=== PATIENT | female | born 1935 | race Caucasian/White ===

== ENCOUNTER 2018-03-23 06:40 | Day surgery (SDC) | payer MEDICARE, BC ==
[2018-03-23] MEDS ORDERED: Phenylephrine 10% Ophth Soln 5 ML Bot EYELF ONE (07:00)
[2018-03-23] MEDS ORDERED: Phenylephrine 10% Ophth Soln 5 ML Bot EYELF PRN (07:00)
[2018-03-23] MEDS ORDERED: Proparacaine 0.5% Ophth Soln 15 ML Bottle EYELF ONE (07:00)
[2018-03-23] MEDS ORDERED: Sodium Chloride 0.9% 10 ML Syringe FLUSH PRN (07:00)
[2018-03-23] MEDS ORDERED: Timolol Maleate 0.5% Ophth Soln 5 ML Bottle EYELF ONE (07:00)
[2018-03-23] MEDS ORDERED: Moxifloxacin 0.5% Ophth Soln 3 ML Bottle EYELF ONE (07:00)
[2018-03-23] MEDS ORDERED: Ondansetron 4 MG/2 ML SDV IVPUSH PRN (07:00)
[2018-03-23] MEDS ORDERED: Acetaminophen 325 MG Tab PO PRN (07:00)
[2018-03-23] MEDS ORDERED: Povidone-Iodine 5% Sterile Ophth Soln 30 ML Bottle EYELF ONE (07:00)
[2018-03-23] MEDS ORDERED: Cataract Ophth Solution EYELF ONE (07:40)
== END 2018-03-23 08:58 | disposition home or self-care (01) ==
LOC: DL.SDS 06:40
PROVIDERS: ATTEND Ophthalmology
DX: E11.36 Type 2 diabetes mellitus with diabetic cataract (principal); Z53.8 Procedure and treatment not carried out for other reasons; I10 Essential (primary) hypertension; E78.5 Hyperlipidemia, unspecified; E03.9 Hypothyroidism, unspecified; Z87.891 Personal history of nicotine dependence; Z79.82 Long term (current) use of aspirin; Z79.899 Other long term (current) drug therapy; Z88.1 Allergy status to other antibiotic agents
CPT/HCPCS: J7050

== ENCOUNTER 2019-01-13 10:10 | Inpatient (IN) | payer MEDICARE, BC ==
--- NOTE | 2019-01-13 10:26 | EDM.PDOC ---
ED HPI GENERAL MEDICAL PROBLEM - General Chief Complaint: Gastrointestinal Problem Stated Complaint: UNKNOWN Time Seen by Provider: 01/13/19 10:20 Source of Information: Reports: Patient History Limitations: Reports: No Limitations - History of Present Illness INITIAL COMMENTS - FREE TEXT/NARRATIVE: patient comes emergency Department today from home by ambulance with concerns of dizziness. She got home from the hospital on Wednesday following a left knee replacement in [place]. Which went uneventful. Since yesterday she has been somewhat nauseated. She also noticed yesterday that she was having dizziness even when she was laying still. Today she had increased room spinning and dizziness not only when she was lying still but with ambulation she became nauseated and vomited. 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 She has not had any fever or chills. No headache. No recent falls or head injury. No visual disturbances. No weakness dizziness lightheadedness. No fever no chills. No chest pain or shortness of breath or difficulty breathing. No abdominal pain but does have some abdominal distention. He has not had a bowel movement since Wednesday which is 5 days ago and she has been taking oxycodone and tramadol for pain. - Related Data Allergies Allergy/AdvReac Type Severity Reaction Status Date / Time adhesive tape Allergy Intermediate Other Verified 01/13/19 10:27 sulfamethoxazole Allergy Intermediate Nausea Verified 01/13/19 10:27 [From Bactrim] ciprofloxacin Allergy Nausea Verified 01/13/19 10:27 nitrofurantoin Allergy Nausea Verified 01/13/19 10:27 trimethoprim [From Bactrim] Allergy Nausea Verified 01/13/19 10:27 Home Meds: Home Meds Aspirin [Halfprin] 81 mg PO BID 01/13/19 [History] Calcium Carbonate/Vitamin D3 [Calcium 600 + Vit D 400 Softgl] 1 cap PO DAILY 02/24 [History] Cranberry Extract/Vit C [Azo Cranberry Softgel] 1 tab PO DAILY 01/13/19 [History ] Cyanocobalamin (Vitamin B-12) [B-12] 1,000 mcg PO DAILY 01/13/19 [History] Levothyroxine 75 mcg PO ACBREAKFAST 01/13/19 [History] Magnesium Oxide [Magnesium] 400 mg PO DAILY 01/13/19 [History] Multivitamin [Multivitamins] 1 each PO DAILY 01/13/19 [History] Simvastatin 20 mg PO BEDTIME 01/13/19 [History] Triamcinolone Acetonide [Kenalog 0.1% Crm] 15 gm TOP BID 01/13/19 [History] oxyCODONE 5 mg PO Q4H PRN 01/13/19 [History] traMADol [Ultram] 25 mg PO Q6H PRN 01/13/19 [History] Past Medical History HEENT History: Reports: Cataract Cardiovascular History: Reports: High Cholesterol, Hypertension, Pacemaker Respiratory History: Reports: None Gastrointestinal History: Reports: GERD Genitourinary History: Reports: None 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: Musculoskeletal History: Reports: Back Pain, Chronic Neurological History: Reports: None Psychiatric History: Reports: None Endocrine/Metabolic History: Reports: Hypothyroidism Hematologic History: Reports: None Immunologic History: Reports: None Oncologic (Cancer) History: Reports: None Dermatologic History: Reports: None - Infectious Disease History Infectious Disease History: Reports: Chicken Pox, Measles, Mumps - Past Surgical History Head Surgeries/Procedures: Reports: None HEENT Surgical History: Reports: None, Cataract Surgery Cardiovascular Surgical History: Reports: Pacer GI Surgical History: Reports: Appendectomy, Cholecystectomy, Colonoscopy Female Surgical History: Reports: Hysterectomy Endocrine Surgical History: Reports: None Musculoskeletal Surgical History: Reports: None Social & Family History - Family History Family Medical History: Noncontributory - Caffeine Use Caffeine Use: Reports: Coffee Caffeine Use Comment: cup coffee am. . cup of tea in pm ED ROS GENERAL - Review of Systems Review Of Systems: ROS reveals no pertinent complaints other than HPI. ED EXAM, DIZZINESS - Physical Exam Exam: See Below Exam Limited By: No Limitations General Appearance: Alert, WD/WN, No Apparent Distress Eye Exam: Bilateral Eye: EOMI, Nystagmus (lateral nystagmus no rotary nystagmus) , PERRL Nystagmus: reproducible Ears: Normal External Exam, Normal Canal, Normal TMs Nose: Normal Inspection, Normal Mucosa Throat/Mouth: Normal Inspection, Normal Lips, Normal Oropharynx Head Exam: Atraumatic, Normocephalic Neck: Normal Inspection, Supple, Non-Tender Respiratory/Chest: No Respiratory Distress, Lungs Clear, Normal Breath Sounds, No Accessory Muscle Use Cardiovascular: Normal Peripheral Pulses, Regular Rate, Rhythm GI/Abdominal: Soft, Non-Tender, Distended (mildly), Abnormal Bowel Sounds ( decreased) Neurological: Alert, Normal Mood/Affect, Normal Dorsiflexion, CN II-XII Intact, Normal Plantar Flexion, Normal Reflexes, No Motor/Sensory Deficits, Oriented x 3 Back Exam: Normal Inspection, Full Range of Motion Extremities: No: Normal Inspection (there is a well-healing unremarkable surgical incision over the left knee with normal postoperative changes. She has scant amount of pretibial edema on the left lower extremity none on the right lower extremity.) Psychiatric: Normal Affect, Normal Mood Skin Exam: Warm, Dry, Intact, No Rash, Pallor EKG INTERPRETATION EKG Date: 01/13/19 Time: 10:35 Rhythm: Other (atrial paced) Rate (Beats/Min): 62 [place]: Normal P-Wave: Present QRS: LBBB ST-T: Normal QT: Normal Comparison: NA - No Prior EKG Course - Vital Signs Last Recorded V/S: Last Vital Signs Temp 35.9 C 01/13/19 10:30 Pulse 62 01/13/19 10:30 Resp 16 01/13/19 10:30 BP 133/83 01/13/19 10:30 Pulse Ox 99 01/13/19 10:56 - Orders/Labs/Meds Orders: Active Orders 24 hr Category Date Time Status EKG 12 Lead [EKG Documentation Completion] [RC] URGENT Care 01/13/19 10:26 Active OSMOLALITY - SERUM [REF] Stat Lab 01/13/19 10:39 Received OSMOLALITY - URINE Stat Lab 01/13/19 12:40 Ordered UA RFX HARPAL AND CULT IF INDIC [URIN] Stat Lab 01/13/19 12:40 Ordered Sodium Chloride 0.9% [Normal Saline] 1,000 ml Med 01/13/19 11:24 Active IV .BOLUS Medication Orders Sodium Chloride (Normal Saline) 1,000 mls @ 125 mls/hr IV .BOLUS ONE Stop: 01/13/19 19:23 Last Admin: 01/13/19 12:14 Dose: 125 mls/hr Labs: Laboratory Tests 01/13/19 01/13/19 Range/Units 10:39 10:39 WBC 6.5 (5.0-10.0) 10^3/uL RBC 3.62 L (4.2-5.4) 10^6/uL Hgb 12.0 (12.0-16.0) g/dL Hct 35.1 L (37.0-47.0) % MCV 97.0 (80-100) fL MCH 33.1 (27.0-34.0) pg MCHC 34.2 (33.0-35.0) g/dL Plt Count 130 L (150-450) 10^3/uL Neut % (Auto) 76.7 H (42.2-75.2) % Lymph % (Auto) 12.6 L (20.5-50.1) % [place] % (Auto) 8.1 H (2-8) % Eos % (Auto) 2.3 (1.0-3.0) % Baso % (Auto) 0.3 (0.0-1.0) % Sodium 127 L (135-145) mmol/L Potassium 4.7 (3.6-5.0) mmol/L Chloride 92 L (101-111) mmol/L Carbon Dioxide 25.0 (21.0-31.0) mmol/L Anion Gap 14.7 BUN 14 (7-18) mg/dL Creatinine 0.6 (0.6-1.3) mg/dL Est Cr Clr Drug Dosing 63.93 mL/min Estimated GFR (MDRD) > 60 BUN/Creatinine Ratio 23.33 Glucose 128 H (74-105) mg/dL Calcium 8.6 (8.4-10.2) mg/dl Total Bilirubin 1.4 H (0.2-1.0) mg/dL AST 18 (10-42) IU/L ALT 11 (10-60) IU/L Alkaline Phosphatase 44 (42-121) IU/L Troponin I < 0.02 (0.00-0.02) ng/ml Total Protein 6.3 L (6.7-8.2) g/dl Albumin 3.4 (3.2-5.5) g/dl Globulin 2.9 Albumin/Globulin Ratio 1.17 Meds: Medications Generic Name Dose Route Start Last Admin Trade Name Freq PRN Reason Stop Dose Admin Sodium Chloride 1,000 mls @ 125 mls/hr 01/13/19 11:24 01/13/19 12:14 Normal Saline IV 01/13/19 19:23 125 mls/hr .BOLUS ONE Administration Discontinued Medications Generic Name Dose Route Start Last Admin Trade Name Freq PRN Reason Stop Dose Admin Meclizine HCl 12.5 mg 01/13/19 10:28 01/13/19 10:36 Antivert PO 01/13/19 10:29 12.5 mg ONETIME ONE Administration Polyethylene Glycol 34 gm 01/13/19 12:19 Miralax PO 01/13/19 12:20 ONETIME ONE - Re-Assessments/Exams Free Text/Narrative Re-Assessment/Exam: 01/13/19 11:00 Meclizine 12.5mg PO PT consult for Eply Pacer interrogation with no events per [employer] 01/13/19 11:24 Looking into her Lino One[employer] her Sodium on 01/09/19 was 140. 01/13/19 13:55 Unable to complete the Eply per PT. Miralax 34 grams po. Xray with gas bowel loops dialated no sign of obstruction with obstipation when reviewed extemporaneously by myself. Sodium quite low 127 which is quite lower than her Lino One. She does not feel like she can be at home with the dizzines and nausea. I spoke with Dr. Camargo HPI ER COURSE findings and concerns were relayed to him. He accepted the patient as inpatient here at [facility]. Pt is comfortable with the plan. Departure - Departure Time of Disposition: 13:01 Disposition: Admitted As Inpatient 66 Clinical Impression: Hyponatremia, Dizziness Constipation Qualifiers: Constipation type: unspecified constipation type Qualified Code(s): K59.00 - Constipation, unspecified - Discharge Information - My Orders Last 24 Hours: My Active Orders 01/13/19 10:26 EKG 12 Lead [EKG Documentation Completion] [RC] URGENT 01/13/19 10:39 OSMOLALITY - SERUM [REF] Stat 01/13/19 11:24 Sodium Chloride 0.9% [Normal Saline] 1,000 ml IV .BOLUS 01/13/19 12:40 OSMOLALITY - URINE Stat UA RFX HARPAL AND CULT IF INDIC [URIN] Stat - Assessment/Plan Last 24 Hours: My Active Orders 01/13/19 10:26 EKG 12 Lead [EKG Documentation Completion] [RC] URGENT 01/13/19 10:39 OSMOLALITY - SERUM [REF] Stat 01/13/19 11:24 Sodium Chloride 0.9% [Normal Saline] 1,000 ml IV .BOLUS 01/13/19 12:40 OSMOLALITY - URINE Stat UA RFX HARPAL AND CULT IF INDIC [URIN] Stat Assessment:: Hyponatremia Dizziness Constipation SP Left knee arthroscopy. Plan: Admit here Dr. Camargo inpatient.
[2019-01-13] MEDS ORDERED: Meclizine 12.5 MG Tab PO ONE (10:28)
[2019-01-13 11:11] LABS: ANION GAP 14.7; CHLORIDE,CL 92 mmol/L (101-111); SODIUM,NA 127 mmol/L (135-145)
[2019-01-13] MEDS ORDERED: Sodium Chloride 0.9% 1,000 ML IV ONE (11:24)
[2019-01-13] MEDS ORDERED: Polyethylene Glycol 3350 Powder 17 GM Packet PO ONE (12:19)
[2019-01-13] MEDS ORDERED: oxyCODONE 5 MG Tab PO PRN (16:27)
[2019-01-13] MEDS ORDERED: Magnesium Citrate Solution 296 ML Bottle PO ONE ×2 (16:29→19:45)
[2019-01-13] MEDS ORDERED: Bisacodyl 5 MG Tab PO SCH (16:30)
[2019-01-13] MEDS ORDERED: Polyethylene Glycol 3350 Powder 17 GM Packet PO SCH (16:30)
[2019-01-13] MEDS ORDERED: Sodium Chloride 0.9% 10 ML Syringe FLUSH PRN (16:30)
--- NOTE | 2019-01-13 16:40 | PCM.HP ---
H&P History of Present Illness - General Date of Service: 01/13/19 Admit Problem/Dx: Admission Diagnosis/Problem Admission Diagnosis/Problem Hyponatremia Source of Information: Patient History Limitations: Reports: No Limitations - History of Present Illness Initial Comments - Free Text/Narative: 83 yo F with PMH of HLD, HTN, osteoarthritis, recently had left knee surgery who was admitted with severe dizziness and constipation. Patient complains of sudden onset of dizziness that started this morning Was so severe that the patient found it difficult to lift her head up or stand up No fever, no chest pain, no abd pain Has been on oral pain meds after knee surgery and hasn't had a BM in several days - Related Data Allergies/Adverse Reactions: Allergies Allergy/AdvReac Type Severity Reaction Status Date / Time adhesive tape Allergy Intermediate Other Verified 01/13/19 14:05 sulfamethoxazole Allergy Intermediate Nausea Verified 01/13/19 14:05 [From Bactrim] ciprofloxacin Allergy Nausea Verified 01/13/19 14:05 nitrofurantoin Allergy Nausea Verified 01/13/19 14:05 trimethoprim [From Bactrim] Allergy Nausea Verified 01/13/19 14:05 Home Medications: Home Meds Aspirin [Halfprin] 81 mg PO BID 01/13/19 [History] Calcium Carbonate/Vitamin D3 [Calcium 600 + Vit D 400 Softgl] 1 cap PO DAILY 02/24 [History] Cranberry Extract/Vit C [Azo Cranberry Softgel] 1 tab PO DAILY 01/13/19 [History ] Cyanocobalamin (Vitamin B-12) [B-12] 1,000 mcg PO DAILY 01/13/19 [History] Levothyroxine 75 mcg PO ACBREAKFAST 01/13/19 [History] Magnesium Oxide [Magnesium] 400 mg PO DAILY 01/13/19 [History] Multivitamin [Multivitamins] 1 each PO DAILY 01/13/19 [History] Simvastatin 20 mg PO BEDTIME 01/13/19 [History] Triamcinolone Acetonide [Kenalog 0.1% Crm] 15 gm TOP BID 01/13/19 [History] oxyCODONE 5 mg PO Q4H PRN 01/13/19 [History] traMADol [Ultram] 25 mg PO Q6H PRN 01/13/19 [History] Past Medical History HEENT History: Reports: Cataract Cardiovascular History: Reports: High Cholesterol, Hypertension, Pacemaker Respiratory History: Reports: None Gastrointestinal History: Reports: GERD Genitourinary History: Reports: None 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: Musculoskeletal History: Reports: Back Pain, Chronic Neurological History: Reports: None Psychiatric History: Reports: None Endocrine/Metabolic History: Reports: Hypothyroidism Hematologic History: Reports: None Immunologic History: Reports: None Oncologic (Cancer) History: Reports: None Dermatologic History: Reports: None - Infectious Disease History Infectious Disease History: Reports: Chicken Pox, Measles, Mumps - Past Surgical History Head Surgeries/Procedures: Reports: None HEENT Surgical History: Reports: None, Cataract Surgery Cardiovascular Surgical History: Reports: Pacer GI Surgical History: Reports: Appendectomy, Cholecystectomy, Colonoscopy Female Surgical History: Reports: Hysterectomy Endocrine Surgical History: Reports: None Musculoskeletal Surgical History: Reports: None Social & Family History - Family History Family Medical History: Noncontributory - Tobacco Use Smoking Status *Q: Former Smoker Used Tobacco, but Quit: Yes Month/Year Tobacco Last Used: 01/1969 - Caffeine Use Caffeine Use: Reports: Coffee Caffeine Use Comment: cup coffee am. . cup of tea in pm - Recreational Drug Use Recreational Drug Use: No H&P Review of Systems - Review of Systems: Review Of Systems: ROS reveals no pertinent complaints other than HPI. General: Denies: Fever HEENT: Reports: No Symptoms Pulmonary: Reports: No Symptoms Cardiovascular: Reports: No Symptoms Gastrointestinal: Reports: No Symptoms Genitourinary: Reports: No Symptoms Psychiatric: Reports: No Symptoms Neurological: Reports: Dizziness Exam - Exam Exam: See Below - Vital Signs Vital Signs: Last Vital Signs Temp 36.2 C 01/13/19 13:53 Pulse 63 01/13/19 13:53 Resp 2 L 01/13/19 13:53 BP 184/72 H 01/13/19 13:53 Pulse Ox 99 01/13/19 13:53 Weight: 92.624 kg - Exam General: Alert, Oriented HEENT: Conjunctiva Clear Neck: Supple, Trachea Midline Lungs: Clear to Auscultation Cardiovascular: Regular Rate, Regular Rhythm GI/Abdominal Exam: Normal Bowel Sounds - Patient Data Lab Results Last 24 hrs: Laboratory Results - last 24 hr 01/13/19 01/13/19 01/13/19 Range/Units 10:39 10:39 12:40 WBC 6.5 (5.0-10.0) 10^3/uL RBC 3.62 L (4.2-5.4) 10^6/uL Hgb 12.0 (12.0-16.0) g/dL Hct 35.1 L (37.0-47.0) % MCV 97.0 (80-100) fL MCH 33.1 (27.0-34.0) pg MCHC 34.2 (33.0-35.0) g/dL Plt Count 130 L (150-450) 10^3/uL Neut % (Auto) 76.7 H (42.2-75.2) % Lymph % (Auto) 12.6 L (20.5-50.1) % [place] % (Auto) 8.1 H (2-8) % Eos % (Auto) 2.3 (1.0-3.0) % Baso % (Auto) 0.3 (0.0-1.0) % Sodium 127 L (135-145) mmol/L Potassium 4.7 (3.6-5.0) mmol/L Chloride 92 L (101-111) mmol/L Carbon Dioxide 25.0 (21.0-31.0) mmol/L Anion Gap 14.7 BUN 14 (7-18) mg/dL Creatinine 0.6 (0.6-1.3) mg/dL Est Cr Clr Drug Dosing 63.93 mL/min Estimated GFR (MDRD) > 60 BUN/Creatinine Ratio 23.33 Glucose 128 H (74-105) mg/dL Calcium 8.6 (8.4-10.2) mg/dl Total Bilirubin 1.4 H (0.2-1.0) mg/dL AST 18 (10-42) IU/L ALT 11 (10-60) IU/L Alkaline Phosphatase 44 (42-121) IU/L Troponin I < 0.02 (0.00-0.02) ng/ml Total Protein 6.3 L (6.7-8.2) g/dl Albumin 3.4 (3.2-5.5) g/dl Globulin 2.9 Albumin/Globulin Ratio 1.17 Urine Color Yellow (YELLOW) Urine Appearance Clear (CLEAR) Urine pH 7.0 (5.0-9.0) Ur Specific [place] 1.015 (1.005-1.030) Urine Protein Negative (NEGATIVE) Urine Glucose (UA) Negative (NEGATIVE) Urine Ketones Negative (NEGATIVE) Urine Occult Blood Negative (NEGATIVE) Urine Nitrite Negative (NEGATIVE) Urine Bilirubin Negative (NEGATIVE) Urine Urobilinogen 0.2 (0.2-1.0) mg/dL Ur Leukocyte Esterase Negative (NEGATIVE) Result Diagrams: 01/13/19 10:39 01/13/19 10:39 Problem List Initiated/Reviewed/Updated: Yes Orders Last 24hrs: Active Orders 24 hr Category Date Time Status Patient Status [ADT] Routine ADT 01/13/19 16:31 Active Ambulate [RC] ASDIRECTED Care 01/13/19 16:31 Active Height and Weight [RC] DAILY Care 01/13/19 16:31 Active Oxygen Therapy [RC] PRN Care 01/13/19 16:31 Active Peripheral IV Care [RC] . DIRECTED Care 01/13/19 16:31 Active Up With Assistance [RC] ASDIRECTED Care 01/13/19 16:31 Active VTE/DVT Education [RC] PER UNIT ROUTINE Care 01/13/19 16:31 Active Vital Signs [RC] Q4H Care 01/13/19 16:31 Active Regular Diet [DIET] Diet 01/13/19 Breakfast Active BASIC METABOLIC PANEL,BMP [CHEM] AM Lab 01/14/19 05:11 Ordered CBC W/O DIFF,HEMOGRAM [HEME] AM Lab 01/14/19 05:11 Ordered OSMOLALITY - SERUM [REF] Stat Lab 01/13/19 10:39 Received OSMOLALITY - URINE Stat Lab 01/13/19 12:40 Received SODIUM,NA [CHEM] Q6H Lab 01/13/19 18:00 Ordered SODIUM,NA [CHEM] Q6H Lab 01/14/19 00:00 Ordered SODIUM,NA [CHEM] Q6H Lab 01/14/19 06:00 Ordered SODIUM,NA [CHEM] Q6H Lab 01/14/19 12:00 Ordered SODIUM,NA [CHEM] Q6H Lab 01/14/19 18:00 Ordered SODIUM,NA [CHEM] Q6H Lab 01/15/19 00:00 Ordered SODIUM,NA [CHEM] Q6H Lab 01/15/19 06:00 Ordered SODIUM,URINE RANDOM [URCHEM] Routine Lab 01/13/19 16:26 Ordered Aspirin [Halfprin] Med 01/13/19 21:00 Ordered 81 mg PO BID Bisacodyl [Dulcolax] Med 01/13/19 16:30 Ordered 5 mg PO DAILY Calcium Carbonate/Vitamin D3 [Calcium 600 + Vit D 400 Med 01/14/19 09:00 Ordered Softgl] 1 cap PO DAILY Cyanocobalamin (Vitamin B12) [Vitamin B12] Med 01/14/19 09:00 Ordered 1,000 mcg PO DAILY Levothyroxine Med 01/14/19 06:00 Ordered 75 mcg PO ACBREAKFAST Magnesium Citrate [Citrate of Magnesia] Med 01/13/19 16:29 Once 296 ml PO ONETIME ONE Magnesium Oxide [Magnesium] Med 01/14/19 09:00 Ordered 400 mg PO DAILY Multivitamin [Multivitamins] Med 01/14/19 09:00 Ordered 1 each PO DAILY Polyethylene Glycol 3350 [MiraLAX] Med 01/13/19 16:30 Ordered 17 gm PO DAILY Simvastatin [Simvastatin] Med 01/13/19 21:00 Ordered 20 mg PO BEDTIME Sodium Chloride 0.9% [Normal Saline] 1,000 ml Med 01/13/19 11:24 Active IV .BOLUS Sodium Chloride 0.9% [Saline Flush] Med 01/13/19 16:30 Ordered 10 ml FLUSH ASDIRECTED PRN oxyCODONE Med 01/13/19 16:27 Ordered 5 mg PO Q4H PRN traMADol [Ultram] Med 01/13/19 16:27 Ordered 25 mg PO Q6H PRN Peripheral IV Insertion Adult [OM.PC] Routine Oth 01/13/19 16:31 Ordered Saline Lock Insert [OM.PC] Routine Oth 01/13/19 16:31 Ordered Medication Orders Aspirin (Halfprin) 81 mg PO BID JORDAN Bisacodyl (Dulcolax) 5 mg PO DAILY JORDAN Cyanocobalamin (Vitamin B12) 1,000 mcg PO DAILY JORDAN Sodium Chloride (Normal Saline) 1,000 mls @ 125 mls/hr IV .BOLUS ONE Stop: 01/13/19 19:23 Last Admin: 01/13/19 12:14 Dose: 125 mls/hr Levothyroxine Sodium (Levothyroxine) 75 mcg PO ACBREAKFAST JORDAN Magnesium Citrate (Citrate Of Magnesia) 296 ml PO ONETIME ONE Stop: 01/13/19 16:30 Non-Formulary Medication (Calcium Carbonate/Vitamin D3 [Calcium 600 + Vit D 400 Softgl]) 1 cap PO DAILY JORDAN Non-Formulary Medication (Magnesium Oxide [Magnesium]) 400 mg PO DAILY JORDAN Non-Formulary Medication (Multivitamin [Multivitamins]) 1 each PO DAILY JORDAN Non-Formulary Medication (Simvastatin [Simvastatin]) 20 mg PO BEDTIME JORDAN Oxycodone HCl (Oxycodone) 5 mg PO Q4H PRN PRN Reason: Pain (severe 7-10) Polyethylene Glycol (Miralax) 17 gm PO DAILY JORDAN Sodium Chloride (Saline Flush) 10 ml FLUSH ASDIRECTED PRN PRN Reason: Keep Vein Open Tramadol HCl (Ultram) 25 mg PO Q6H PRN PRN Reason: Pain (moderate 4-6) Assessment/Plan Comment:: Symptomatic hyponatremia -check urine osm, urine sodium -likely SIADH -hold IV fluids for now -check sodium q6 hrs Hyperlipidemia -continue home meds Constipation -start BM regimen DVT ppx -SC enoxaparin
[2019-01-13] MEDS ORDERED: Enoxaparin 40 MG/0.4 ML Syringe SUBCUT SCH ×2 (17:00→19:45)
[2019-01-13] MEDS: Bisacodyl 5 MG Tab PO SCH (20:13)
[2019-01-13] MEDS: Simvastatin 10 MG Tab PO SCH (21:35)
[2019-01-13] MEDS: Aspirin 81 MG Tab.EC PO SCH (21:36)
[2019-01-13] MEDS: Polyethylene Glycol 3350 Powder 17 GM Packet PO SCH (21:43)
[2019-01-14] MEDS: traMADol 50 MG Tab PO PRN ×3 (05:24→18:26)
[2019-01-14] MEDS: Levothyroxine 75 MCG Tab PO SCH (05:34)
[2019-01-14 07:57] LABS: ANION GAP 13.5; CHLORIDE,CL 96 mmol/L (101-111); SODIUM,NA 133 mmol/L (135-145)
[2019-01-14] MEDS: Polyethylene Glycol 3350 Powder 17 GM Packet PO SCH (08:25)
[2019-01-14] MEDS: Bisacodyl 5 MG Tab PO SCH (08:25)
[2019-01-14] MEDS: Cyanocobalamin (Vitamin B12) 1,000 MCG Tab PO SCH (08:56)
[2019-01-14] MEDS: Calcium Carbonate/Vitamin D3 1250 MG-200 Unit Tab PO SCH (08:56)
[2019-01-14] MEDS: Aspirin 81 MG Tab.EC PO SCH ×2 (08:56→20:39)
[2019-01-14] MEDS: Multivitamins,Therapeutic Tab PO SCH (08:56)
[2019-01-14] MEDS ORDERED: Meclizine 12.5 MG Tab PO PRN (09:17)
[2019-01-14] MEDS ORDERED: Lidocaine 5% 700 MG Patch TOP SCH (12:30)
--- NOTE | 2019-01-14 13:45 | PCM.PN ---
- General Info Date of Service: 01/14/19 Admission Dx/Problem (Free Text): Admission Diagnosis/Problem Admission Diagnosis/Problem Hyponatremia Subjective Update: I saw and examined the patient at the bedside still has dizziness/vertigo Also complains of pain in the left heel. Has a history of Achilles tendon tear - Review of Systems General: Reports: Weakness HEENT: Reports: No Symptoms Pulmonary: Reports: No Symptoms Cardiovascular: Reports: No Symptoms Gastrointestinal: Reports: No Symptoms Genitourinary: Reports: No Symptoms Musculoskeletal: Reports: Other (left heel pain) Skin: Reports: No Symptoms Neurological: Reports: Dizziness - Patient Data Vitals - Most Recent: Last Vital Signs Temp 35.9 C 01/14/19 08:44 Pulse 64 01/14/19 08:44 Resp 20 01/14/19 08:44 BP 123/52 L 01/14/19 08:44 Pulse Ox 95 01/14/19 08:44 Weight - Most Recent: 89.811 kg I&O - Last 24 Hours: Intake & Output 01/13/19 01/14/19 01/14/19 22:59 06:59 14:59 Intake Total 1225 100 Output Total 800 Balance 425 100 Lab Results Last 24 Hours: Laboratory Results - last 24 hr 01/13/19 01/13/19 01/13/19 Range/Units 10:39 12:40 12:40 WBC (5.0-10.0) 10^3/uL RBC (4.2-5.4) 10^6/uL Hgb (12.0-16.0) g/dL Hct (37.0-47.0) % MCV (80-100) fL MCH (27.0-34.0) pg MCHC (33.0-35.0) g/dL Plt Count (150-450) 10^3/uL Sodium (135-145) mmol/L Potassium (3.6-5.0) mmol/L Chloride (101-111) mmol/L Carbon Dioxide (21.0-31.0) mmol/L Anion Gap BUN (7-18) mg/dL Creatinine (0.6-1.3) mg/dL Est Cr Clr Drug Dosing mL/min Estimated GFR (MDRD) Glucose (74-105) mg/dL Serum Osmolality 270 L (275-295) mosm/kg Calcium (8.4-10.2) mg/dl Urine Color Yellow (YELLOW) Urine Appearance Clear (CLEAR) Urine pH 7.0 (5.0-9.0) Ur Specific [place] 1.015 (1.005-1.030) Urine Protein Negative (NEGATIVE) Urine Glucose (UA) Negative (NEGATIVE) Urine Ketones Negative (NEGATIVE) Urine Occult Blood Negative (NEGATIVE) Urine Nitrite Negative (NEGATIVE) Urine Bilirubin Negative (NEGATIVE) Urine Urobilinogen 0.2 (0.2-1.0) mg/dL Ur Leukocyte Esterase Negative (NEGATIVE) Urine Osmolality 273 L (300-900) mosm/kg Ur Random Sodium (40-220) mmol/L 01/13/19 01/13/19 01/14/19 Range/Units 18:48 20:00 00:27 WBC (5.0-10.0) 10^3/uL RBC (4.2-5.4) 10^6/uL Hgb (12.0-16.0) g/dL Hct (37.0-47.0) % MCV (80-100) fL MCH (27.0-34.0) pg MCHC (33.0-35.0) g/dL Plt Count (150-450) 10^3/uL Sodium 129 L 132 L (135-145) mmol/L Potassium (3.6-5.0) mmol/L Chloride (101-111) mmol/L Carbon Dioxide (21.0-31.0) mmol/L Anion Gap BUN (7-18) mg/dL Creatinine (0.6-1.3) mg/dL Est Cr Clr Drug Dosing mL/min Estimated GFR (MDRD) Glucose (74-105) mg/dL Serum Osmolality (275-295) mosm/kg Calcium (8.4-10.2) mg/dl Urine Color (YELLOW) Urine Appearance (CLEAR) Urine pH (5.0-9.0) Ur Specific [place] (1.005-1.030) Urine Protein (NEGATIVE) Urine Glucose (UA) (NEGATIVE) Urine Ketones (NEGATIVE) Urine Occult Blood (NEGATIVE) Urine Nitrite (NEGATIVE) Urine Bilirubin (NEGATIVE) Urine Urobilinogen (0.2-1.0) mg/dL Ur Leukocyte Esterase (NEGATIVE) Urine Osmolality (300-900) mosm/kg Ur Random Sodium 27 L (40-220) mmol/L 01/14/19 01/14/19 01/14/19 Range/Units 06:40 06:40 12:06 WBC 6.0 (5.0-10.0) 10^3/uL RBC 3.37 L (4.2-5.4) 10^6/uL Hgb 11.1 L (12.0-16.0) g/dL Hct 33.4 L (37.0-47.0) % MCV 99.1 (80-100) fL MCH 32.9 (27.0-34.0) pg MCHC 33.2 (33.0-35.0) g/dL Plt Count 167 (150-450) 10^3/uL Sodium 133 L 132 L (135-145) mmol/L Potassium 4.5 (3.6-5.0) mmol/L Chloride 96 L (101-111) mmol/L Carbon Dioxide 28.0 (21.0-31.0) mmol/L Anion Gap 13.5 BUN 17 (7-18) mg/dL Creatinine 0.8 (0.6-1.3) mg/dL Est Cr Clr Drug Dosing 47.95 mL/min Estimated GFR (MDRD) > 60 Glucose 111 H (74-105) mg/dL Serum Osmolality (275-295) mosm/kg Calcium 8.5 (8.4-10.2) mg/dl Urine Color (YELLOW) Urine Appearance (CLEAR) Urine pH (5.0-9.0) Ur Specific [place] (1.005-1.030) Urine Protein (NEGATIVE) Urine Glucose (UA) (NEGATIVE) Urine Ketones (NEGATIVE) Urine Occult Blood (NEGATIVE) Urine Nitrite (NEGATIVE) Urine Bilirubin (NEGATIVE) Urine Urobilinogen (0.2-1.0) mg/dL Ur Leukocyte Esterase (NEGATIVE) Urine Osmolality (300-900) mosm/kg Ur Random Sodium (40-220) mmol/L Med Orders - Current: Current Medications Aspirin (Halfprin) 81 mg PO BID [facility] Last Admin: 01/14/19 08:56 Dose: 81 mg Bisacodyl (Dulcolax) 5 mg PO DAILY [facility] Last Admin: 01/14/19 08:25 Dose: Not Given Calcium Carbonate (Calcium Carbonate/Vitamin D 1250 Mg-200 Unit) 1 tab PO DAILY [facility] Last Admin: 01/14/19 08:56 Dose: 1 tab Cyanocobalamin (Vitamin B12) 1,000 mcg PO DAILY [facility] Last Admin: 01/14/19 08:56 Dose: 1,000 mcg Enoxaparin Sodium (Lovenox) 40 mg SUBCUT Q24H [facility] Last Admin: 01/13/19 20:15 Dose: 40 mg Levothyroxine Sodium (Levothyroxine) 75 mcg PO ACBREAKFAST [facility] Last Admin: 01/14/19 05:34 Dose: 75 mcg Lidocaine (Lidoderm 5%) 700 mg TOP Q24H [facility] Last Admin: 01/14/19 12:32 Dose: 700 mg Magnesium Oxide (Magnesium Oxide) 250 mg PO DAILY [facility] Last Admin: 01/14/19 08:56 Dose: 250 mg Meclizine HCl (Antivert) 12.5 mg PO Q6H PRN PRN Reason: Dizziness Miscellaneous Information (Remove Patch) 1 ea TRDERM Q24H [facility] Multivitamins (Thera) 1 each PO DAILY [facility] Last Admin: 01/14/19 08:56 Dose: 1 each Oxycodone HCl (Oxycodone) 5 mg PO Q4H PRN PRN Reason: Pain (severe 7-10) Polyethylene Glycol (Miralax) 17 gm PO DAILY [facility] Last Admin: 01/14/19 08:25 Dose: Not Given Simvastatin (Zocor) 20 mg PO BEDTIME [facility] Last Admin: 01/13/19 21:35 Dose: 20 mg Sodium Chloride (Saline Flush) 10 ml FLUSH ASDIRECTED PRN PRN Reason: Keep Vein Open Tramadol HCl (Ultram) 25 mg PO Q6H PRN PRN Reason: Pain (moderate 4-6) Last Admin: 01/14/19 11:21 Dose: 25 mg Discontinued Medications Bisacodyl (Dulcolax) 5 mg PO DAILY [facility] Last Admin: 01/13/19 20:02 Dose: Not Given Enoxaparin Sodium (Lovenox) 40 mg SUBCUT Q24H [facility] Last Admin: 01/13/19 20:03 Dose: Not Given Sodium Chloride (Normal Saline) 1,000 mls @ 125 mls/hr IV .BOLUS ONE Stop: 01/13/19 19:23 Last Admin: 01/13/19 12:14 Dose: 125 mls/hr Magnesium Citrate (Citrate Of Magnesia) 296 ml PO ONETIME ONE Stop: 01/13/19 16:30 Last Admin: 01/13/19 20:04 Dose: Not Given Magnesium Citrate (Citrate Of Magnesia) 296 ml PO ONETIME ONE Stop: 01/13/19 19:46 Last Admin: 01/13/19 20:14 Dose: 296 ml Meclizine HCl (Antivert) 12.5 mg PO ONETIME ONE Stop: 01/13/19 10:29 Last Admin: 01/13/19 10:36 Dose: 12.5 mg Polyethylene Glycol (Miralax) 34 gm PO ONETIME ONE Stop: 01/13/19 12:20 Last Admin: 01/13/19 14:29 Dose: 34 gm Polyethylene Glycol (Miralax) 17 gm PO DAILY [facility] Last Admin: 01/13/19 20:03 Dose: Not Given - Exam General: Alert, Oriented HEENT: Pupils Equal Neck: Supple Lungs: Clear to Auscultation, Normal Respiratory Effort Cardiovascular: Regular Rate, Regular Rhythm GI/Abdominal Exam: Normal Bowel Sounds, Soft, Non-Tender Extremities: Other (left heel tenderness) - Problem List Review Problem List Initiated/Reviewed/Updated: Yes - My Orders Last 24 Hours: My Active Orders 01/13/19 16:27 oxyCODONE 5 mg PO Q4H PRN traMADol [Ultram] 25 mg PO Q6H PRN 01/13/19 16:30 Sodium Chloride 0.9% [Saline Flush] 10 ml FLUSH ASDIRECTED PRN 01/13/19 16:31 Patient Status [ADT] Routine Ambulate [RC] ASDIRECTED Height and Weight [RC] 06 Oxygen Therapy [RC] PRN Peripheral IV Care [RC] ,21 Up With Assistance [RC] ASDIRECTED VTE/DVT Education [RC] PER UNIT ROUTINE Vital Signs [RC] 04,08,12,16,20 Peripheral IV Insertion Adult [OM.PC] Routine Saline Lock Insert [OM.PC] Routine 01/13/19 19:45 Bisacodyl [Dulcolax] 5 mg PO DAILY Enoxaparin [Lovenox] 40 mg SUBCUT Q24H Polyethylene Glycol 3350 [MiraLAX] 17 gm PO DAILY 01/13/19 21:00 Aspirin [Halfprin] 81 mg PO BID Simvastatin [Zocor] 20 mg PO BEDTIME 01/13/19 Dinner Fluid Restriction [DIET] 01/14/19 06:00 Levothyroxine 75 mcg PO ACBREAKFAST 01/14/19 09:00 Calcium Carbonate/Vitamin D3 [Calcium Carbonate/Vitamin D 1250 MG-200 Unit] 1 tab PO DAILY Cyanocobalamin (Vitamin B12) [Vitamin B12] 1,000 mcg PO DAILY Magnesium Oxide 250 mg PO DAILY Multivitamins,Therapeutic [Thera] 1 each PO DAILY 01/14/19 09:17 Meclizine [Antivert] 12.5 mg PO Q6H PRN 01/14/19 12:13 Code Status [Resuscitation Status] Routine 01/14/19 12:30 Lidocaine 5% [Lidoderm 5%] 700 mg TOP Q24H 01/14/19 18:00 SODIUM,NA [CHEM] Q6H 01/15/19 00:00 SODIUM,NA [CHEM] Q6H 01/15/19 00:30 Remove Patch 1 ea TRDERM Q24H 01/15/19 06:00 SODIUM,NA [CHEM] Q6H - Plan Plan:: Symptomatic hyponatremia -urine osm: 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
[2019-01-14] MEDS: Enoxaparin 40 MG/0.4 ML Syringe SUBCUT SCH (14:56)
[2019-01-14] MEDS: Simvastatin 10 MG Tab PO SCH (20:39)
[2019-01-14] MEDS ORDERED: Remove Patch*LIDODERM TRDERM SCH (21:00)
[2019-01-15] MEDS ORDERED: Remove Patch*LIDODERM TRDERM SCH (00:30)
[2019-01-15] MEDS: traMADol 50 MG Tab PO PRN (03:25)
[2019-01-15] MEDS: Levothyroxine 75 MCG Tab PO SCH (06:38)
[2019-01-15] MEDS: Lidocaine 5% 700 MG Patch TOP SCH ×2 (08:52→15:12)
[2019-01-15] MEDS: Enoxaparin 40 MG/0.4 ML Syringe SUBCUT SCH (08:53)
[2019-01-15] MEDS: Multivitamins,Therapeutic Tab PO SCH (08:55)
[2019-01-15] MEDS: Aspirin 81 MG Tab.EC PO SCH (08:55)
[2019-01-15] MEDS: Calcium Carbonate/Vitamin D3 1250 MG-200 Unit Tab PO SCH (08:55)
[2019-01-15] MEDS: Cyanocobalamin (Vitamin B12) 1,000 MCG Tab PO SCH (08:55)
[2019-01-15] MEDS: Bisacodyl 5 MG Tab PO SCH (08:56)
--- NOTE | 2019-01-15 12:34 | PCM.DCSUM1 ---
Discharge Summary - Hospital Course Free Text/Narrative:: 83 yo F with PMH of HLD, HTN, osteoarthritis, recently had left knee surgery who was admitted with severe dizziness and constipation. She was found to have a sodium of 127 in the ED. 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 Urine osm was 273. Sodium improved during admission with slow correction Also was started on BM regimen and had BM during admission Will follow up with PCP, PT/OT Diagnosis: Stroke: No - Discharge Data Discharge Date: 01/15/19 Discharge Disposition: Home, Self-Care 01 Condition: Good - Patient Instructions Diet: Usual Diet as Tolerated, Fluid Restriction Fluid Restriction: 2000 mL Activity: As Tolerated ( ) - Discharge Plan Home Medications: Home Meds Aspirin [Halfprin] 81 mg PO BID 01/13/19 [History] Calcium Carbonate/Vitamin D3 [Calcium 600 + Vit D 400 Softgl] 1 cap PO DAILY 02/24 [History] Cranberry Extract/Vit C [Azo Cranberry Softgel] 1 tab PO DAILY 01/13/19 [History ] Cyanocobalamin (Vitamin B-12) [B-12] 1,000 mcg PO DAILY 01/13/19 [History] Levothyroxine 75 mcg PO ACBREAKFAST 01/13/19 [History] Magnesium Oxide [Magnesium] 400 mg PO DAILY 01/13/19 [History] Multivitamin [Multivitamins] 1 each PO DAILY 01/13/19 [History] Simvastatin 20 mg PO BEDTIME 01/13/19 [History] Triamcinolone Acetonide [Kenalog 0.1% Crm] 15 gm TOP BID 01/13/19 [History] oxyCODONE 5 mg PO Q4H PRN 01/13/19 [History] traMADol [Ultram] 25 mg PO Q6H PRN 01/13/19 [History] Patient Handouts: Hyponatremia, [id number] Referrals: Apolinar Matute MD [Primary Care Provider] - - Discharge Summary/Plan Comment DC Time >30 min.: Yes - General Info Date of Service: 01/15/19 Admission Dx/Problem (Free Text: Admission Diagnosis/Problem Admission Diagnosis/Problem Hyponatremia Subjective Update: I saw and examined the patient at the bedside dizziness/vertigo has improved No new complaints - Review of Systems General: Reports: No Symptoms HEENT: Reports: No Symptoms Pulmonary: Reports: No Symptoms Cardiovascular: Reports: No Symptoms Gastrointestinal: Reports: No Symptoms Genitourinary: Reports: No Symptoms Musculoskeletal: Reports: No Symptoms Skin: Reports: No Symptoms Neurological: Reports: No Symptoms - Patient Data Vitals - Most Recent: Last Vital Signs Temp 36.3 C 01/15/19 12:16 Pulse 58 L 01/15/19 12:16 Resp 20 01/15/19 12:16 BP 121/61 01/15/19 12:16 Pulse Ox 96 01/15/19 12:16 Weight - Most Recent: 89.721 kg I&O - Last 24 hours: Intake & Output 01/14/19 01/15/19 01/15/19 22:59 06:59 14:59 Intake Total 500 150 Output Total 1 Balance 499 150 Lab Results - Last 24 hrs: Laboratory Results - last 24 hr 01/14/19 01/15/19 01/15/19 Range/Units 17:57 00:15 05:55 Sodium 132 L 133 L 134 L (135-145) mmol/L Med Orders - Current: Current Medications Aspirin (Halfprin) 81 mg PO BID [facility] Last Admin: 01/15/19 08:55 Dose: 81 mg Bisacodyl (Dulcolax) 5 mg PO DAILY [facility] Last Admin: 01/15/19 08:56 Dose: Not Given Calcium Carbonate (Calcium Carbonate/Vitamin D 1250 Mg-200 Unit) 1 tab PO DAILY [facility] Last Admin: 01/15/19 08:55 Dose: 1 tab Cyanocobalamin (Vitamin B12) 1,000 mcg PO DAILY [facility] Last Admin: 01/15/19 08:55 Dose: 1,000 mcg Enoxaparin Sodium (Lovenox) 40 mg SUBCUT DAILY [facility] Last Admin: 01/15/19 08:53 Dose: 40 mg Levothyroxine Sodium (Levothyroxine) 75 mcg PO ACBREAKFAST [facility] Last Admin: 01/15/19 06:38 Dose: 75 mcg Lidocaine (Lidoderm 5%) 700 mg TOP DAILY [facility] Last Admin: 01/15/19 08:52 Dose: 700 mg Magnesium Oxide (Magnesium Oxide) 250 mg PO DAILY [facility] Last Admin: 01/15/19 08:54 Dose: 250 mg Meclizine HCl (Antivert) 12.5 mg PO Q6H PRN PRN Reason: Dizziness Miscellaneous Information (Remove Patch) 1 ea MALGORZATA Q24H [facility] Last Admin: 01/14/19 20:42 Dose: 1 ea Multivitamins (Thera) 1 each PO DAILY [facility] Last Admin: 01/15/19 08:55 Dose: 1 each Oxycodone HCl (Oxycodone) 5 mg PO Q4H PRN PRN Reason: Pain (severe 7-10) Simvastatin (Zocor) 20 mg PO BEDTIME [facility] Last Admin: 01/14/19 20:39 Dose: 20 mg Sodium Chloride (Saline Flush) 10 ml FLUSH ASDIRECTED PRN PRN Reason: Keep Vein Open Tramadol HCl (Ultram) 25 mg PO Q6H PRN PRN Reason: Pain (moderate 4-6) Last Admin: 01/15/19 03:25 Dose: 25 mg Discontinued Medications Bisacodyl (Dulcolax) 5 mg PO DAILY [facility] Last Admin: 01/13/19 20:02 Dose: Not Given Enoxaparin Sodium (Lovenox) 40 mg SUBCUT Q24H [facility] Last Admin: 01/13/19 20:03 Dose: Not Given Enoxaparin Sodium (Lovenox) 40 mg SUBCUT Q24H [facility] Last Admin: 01/13/19 20:15 Dose: 40 mg Sodium Chloride (Normal Saline) 1,000 mls @ 125 mls/hr IV .BOLUS ONE Stop: 01/13/19 19:23 Last Admin: 01/13/19 12:14 Dose: 125 mls/hr Lidocaine (Lidoderm 5%) 700 mg TOP Q24H [facility] Stop: 01/14/19 21:00 Last Admin: 01/14/19 12:32 Dose: 700 mg Magnesium Citrate (Citrate Of Magnesia) 296 ml PO ONETIME ONE Stop: 01/13/19 16:30 Last Admin: 01/13/19 20:04 Dose: Not Given Magnesium Citrate (Citrate Of Magnesia) 296 ml PO ONETIME ONE Stop: 01/13/19 19:46 Last Admin: 01/13/19 20:14 Dose: 296 ml Meclizine HCl (Antivert) 12.5 mg PO ONETIME ONE Stop: 01/13/19 10:29 Last Admin: 01/13/19 10:36 Dose: 12.5 mg Miscellaneous Information (Remove Patch) 1 ea TRDERM Q24H [facility] Polyethylene Glycol (Miralax) 34 gm PO ONETIME ONE Stop: 01/13/19 12:20 Last Admin: 01/13/19 14:29 Dose: 34 gm Polyethylene Glycol (Miralax) 17 gm PO DAILY [facility] Last Admin: 01/13/19 20:03 Dose: Not Given Polyethylene Glycol (Miralax) 17 gm PO DAILY [facility] Last Admin: 01/14/19 08:25 Dose: Not Given - Exam General: Reports: Alert, Oriented HEENT: Reports: Pupils Equal, Pupils Reactive Neck: Reports: Supple Lungs: Reports: Clear to Auscultation, Normal Respiratory Effort Cardiovascular: Reports: Regular Rate, Regular Rhythm GI/Abdominal Exam: Normal Bowel Sounds, Soft, Non-Tender
== END 2019-01-15 14:00 | disposition home or self-care (01) | DRG 645 ==
LOC: DL.ED 10:10 → DL.MS 13:27 → UNDOADMIN 13:27 → DL.MS 16:31
PROVIDERS: ADMIT Hospitalist; ATTEND Hospitalist
DX: E22.2 Syndrome of inappropriate secretion of antidiuretic hormone (principal); E78.5 Hyperlipidemia, unspecified; I10 Essential (primary) hypertension; M19.91 Primary osteoarthritis, unspecified site; E03.9 Hypothyroidism, unspecified; K21.9 Gastro-esophageal reflux disease without esophagitis; G89.29 Other chronic pain; M54.9 Dorsalgia, unspecified; R42 Dizziness and giddiness; K59.00 Constipation, unspecified; Z96.652 Presence of left artificial knee joint; Z88.1 Allergy status to other antibiotic agents; Z88.2 Allergy status to sulfonamides; Z88.8 Allergy status to other drugs, medicaments and biological substances; Z79.82 Long term (current) use of aspirin; Z87.891 Personal history of nicotine dependence; Z95.0 Presence of cardiac pacemaker; Z79.899 Other long term (current) drug therapy; Z98.49 Cataract extraction status, unspecified eye; Z90.49 Acquired absence of other specified parts of digestive tract; E87.1 Hypo-osmolality and hyponatremia; Z90.89 Acquired absence of other organs
CPT/HCPCS: 36415; 74019; 80053; 81003; 83930; 83935; 84484; 85025; 93005; 96360; 96361; 99285; A9270 ×2; J7030; 80048; 84295; 84300; 85027; J1650